=== PATIENT | male | born 1985 | race Caucasian/White ===

== ENCOUNTER 2016-04-22 20:14 | Emergency (ER) | payer SELFPAY ==
[~2016-04-22] VITALS: Ht 167.6 cm; Wt 65.9 kg
[~2016-04-22 20:14] MED LIST: ALBU8.5H5 INH; PRED20TA PO
[2016-04-22 20:38] VITALS: Ht 167.6 cm; Wt 65.9 kg
[2016-04-22] MEDS ORDERED: SOD CHLORIDE 0.9% 500 ML IV STA (22:31)
[2016-04-22] MEDS ORDERED: ONDANSETRON 4 MG INJ IV STA (22:31)
[2016-04-22] MEDS ORDERED: morphine 10 MG INJ IV ONE (23:00)
--- NOTE | 2016-04-22 23:07 | RADRPT ---
PROCEDURE: US left lower extremity venous Doppler CLINICAL INDICATION: Swelling TECHNIQUE: Multiple sonographic images of the left lower extremity deep venous system was obtained utilizing grayscale, color-flow, compressive sonography and Doppler imaging with augmentation. COMPARISON: No pertinent prior examinations were submitted for comparison. FINDINGS: There is normal compressibility and flow within the left common femoral, superficial femoral, poplit eal, and calf veins. IMPRESSION: No sonographic evidence for left deep venous thrombosis. RPTAT: HIKT .Lucas Dillon MD, MD Date Time Electronically viewed and signed by .Lucas Dillon MD, on 04/22/2016 23:07 .T/
--- NOTE | 2016-04-22 23:16 | RADRPT ---
PROCEDURE: Left knee x-ray CLINICAL INDICATION: Injury to the left knee. TECHNIQUE: AP, lateral and oblique views of the left knee were obtained. COMPARISON: None FINDINGS: Oblique fracture proximal metaphysis of the left fibula. There is mild displacement of the fracture. Remaining osseous structures are without acute fracture. Soft tissues unremarkable. IMPRESSION: Mildly displaced oblique fracture of the proximal metaphysis of the left fibula. RPTAT: UU Physician Judah Date Time Electronically viewed and signed by Physician Judah on 04/22/2016 23:15 RS/
--- NOTE | 2016-04-22 23:20 | RADRPT ---
PROCEDURE: XR Femur. CLINICAL INDICATION: Pain. TECHNIQUE: AP and lateral views of the left femur were obtained. COMPARISON: No prior studies are available for comparison. FINDINGS: Acute mildly displaced closed fracture of the proximal fibula is noted. No acute fracture of left f emur is noted. No significant soft tissue swelling is noted. IMPRESSION: 1. Acute mildly displaced closed fracture of the proximal fibula. 2. No acute fracture of the femur. RPTAT: HFN .Berenice Dixon MD, Date Time Electronically viewed and signed by .Berenice Dixon MD, on 04/22/2016 23:19 .N/
--- NOTE | 2016-04-22 23:25 | RADRPT ---
PROCEDURE: CT BRAIN WITHOUT CONTRAST CLINICAL INDICATION: 31-year-old male with trauma. TECHNIQUE: The study was performed utilizing a GE [employer] VCT 64-slice CT scanner. Direct axia l sections were obtained from the foramen magnum to the vertex without the use of intravenous contra st material. Sagittal and coronal reformations were obtained. Automated exposure control and iterat wendy reconstruction techniques were utilized for this examination. The images were viewed on a PACS workstation. CTD/vol = 39.0 mGy; Total Exam DLP = 555.0 mGy-cm. COMPARISON: None. FINDINGS: The ventricles have a normal size, shape and position. There is no evidence for mass effect or midl ine shift. There are no intracranial areas of abnormal attenuation. There is no evidence for acute intra or extra-axial blood. The bony calvarium is intact. There is mild mucosal thickening within t he partially visualized ethmoid air cells. No air-fluid levels are noted. The mastoid air cells ar e without significant soft tissue. IMPRESSION: 1. The intracranial contents are unremarkable on this noncontrast CT scan of the brain. 2. Mild mucosal thickening partially visualized ethmoid air cells. .Myron Anderson MD, MD Date Time Electronically viewed and signed by .Myron Anderson MD, on 04/22/2016 23:25 .M/
--- NOTE | 2016-04-22 23:42 | RADRPT ---
PROCEDURE: CT FACIAL BONES WITHOUT CONTRAST CLINICAL INDICATION: 31-year-old male with trauma. TECHNIQUE: The study was performed utilizing a GE [employer] VCT 64-slice CT scanner. Direct axia l sections were obtained through the facial bones without the use of intravenous contrast material. Sagittal and coronal re-formations were obtained. Automated exposure control and iterative reconstr uction techniques were utilized for this examination. The images were reviewed on a PACS workstatio n. CTD/vol = 29.5 mGy; Total Exam DLP = 544.3 mGy-cm. COMPARISON: CT brain obtained concurrently. FINDINGS: There is no evidence for a facial bone fracture. The globes are intact. There are no intra- or ext ra-conal masses. There is mild mucosal thickening within the ethmoid air cells and inferior maxillar y sinuses. No air-fluid levels are noted. The ostiomeatal units are patent bilaterally. There is le ftward nasal septal deviation. Shotty lymph nodes are seen within the upper neck. IMPRESSION: 1. No CT evidence for acute facial bone fracture. 2. Mild mucosal thickening ethmoid air cells inferior maxillary sinuses. 3. Leftward nasal septal deviation. .Myron Anderson MD, MD Date Time Electronically viewed and signed by .Myron Anderson MD, on 04/22/2016 23:42 .M/
[2016-04-22] MEDS ORDERED: CEPHALEXIN 500 MG CAP PO STA (23:47)
[2016-04-22] MEDS ORDERED: TRIMETHOPRIM/SULFAMETHOX (DS) TAB PO STA (23:47)
[2016-04-22] MEDS ORDERED: AMPICILLIN/SULB 3 GM/NS (PMX) 100 ML IVPB STA (23:58)
[2016-04-23 00:07] LABS: ADD SCAN DIFF NO
[2016-04-23 00:09] LABS: BASOPHILS % 0.5 % (0.0-2.0); EOSINOPHILS # 0.2 10^3/ul (0.0-0.5); EOSINOPHILS % 2.6 % (0.0-7.0); HEMATOCRIT 37.1 % (42.0-52.0); HEMOGLOBIN 12.4 g/dl (14.0-18.0); LYMPHOCYTES % 27.3 % (15.0-51.0); MEAN CORPUSCULAR HEMOGLOBIN 30.5 pg (29.0-33.0); MEAN CORPUSCULAR HGB CONC 33.4 g/dl (32.0-37.0); MEAN CORPUSCULAR VOLUME 91.2 fl (82.0-101.0); MEAN PLATELET VOLUME 10.6 fl (7.4-10.4); MONOCYTE # 0.6 10^3/ul (0.3-0.9); MONOCYTES % 8.5 % (0.0-11.0); NEUTROPHIL # 4.5 10^3/ul (1.6-7.5); NEUTROPHILS % 60.8 % (39.0-77.0); PLATELET COUNT 209 10^3/UL (140-415); RED BLOOD COUNT 4.07 10^6/ul (4.70-6.10); WHITE BLOOD COUNT 7.4 10^3/ul (4.8-10.8)
[2016-04-23 00:41] LABS: ALBUMIN 4.2 g/dl (3.3-4.9)
[2016-04-23 00:42] LABS: POTASSIUM 3.7 mmol/L (3.5-5.1)
[2016-04-23 00:44] LABS: ALBUMIN/GLOBULIN RATIO 1.13; BILIRUBIN,INDIRECT 0.4 mg/dl (0-1.1); BILIRUBIN,TOTAL 0.4 mg/dl (0.2-1.3); CREATININE 0.73 mg/dl (0.61-1.24); TOTAL PROTEIN 7.9 g/dl (6.1-8.1)
[2016-04-23 00:45] LABS: CALCIUM 9.2 mg/dl (8.4-10.2)
--- NOTE | 2016-04-23 01:10 | RADRPT ---
PROCEDURE: XR tibia / fibula. CLINICAL INDICATION: Trauma. TECHNIQUE: AP and lateral views of the left tibia/fibula were performed. COMPARISON: There are no similar studies submitted for comparison. FINDINGS: There is normal bone mineralization. there is an acute, oblique fracture within the proximal fibular metaphysis with minimal displacement. No osseous lesion is identified. IMPRESSION: Proximal fibular fracture. RPTAT: HIKT .Lucas Dillon MD, MD Date Time Electronically viewed and signed by .Lucas Dillon MD, MD on 04/23/2016 01:10 .T/
[2016-04-23] MEDS ORDERED: NAPR-260 PO (01:16)
[2016-04-23] MEDS ORDERED: HYDR-906 PO (01:16)
[2016-04-23] MEDS ORDERED: BACTDS PO (01:18)
[2016-04-23] MEDS ORDERED: CEPH500C PO (01:18)
--- NOTE | 2016-04-23 01:51 | ERD ---
ER Documentation Chief Complaint Date/Time DATE: 04/23/16 TIME: 01:38 Chief Complaint LT SIDE LEG AND TRUNK PAIN ROAD RASH, RIGHT BLK EYE SINCE FRIDAY +ALCOHOL HPI This is a 31-year-old male presenting to the emergency department complaining of a road rash on the left calf, knee pain, and a right black eye since Friday. Patient states that he was intoxicated on Friday and he woke up with these injuries. Patient states that he has no idea how he got them. Patient has difficulty walking due to the pain in his left lower extremity. Patient rates the pain 10/10. Patient states that the next morning he did wake up with vomiting however he was intoxicated and thinks he was due to a hangover. Patient denies any neuro deficits, he denies any headaches, lethargy, current vomiting. Patient has not taken any oral medications. Patient states that he has been applying silver Silvadene to his road rash on his left calf. ROS All systems reviewed and are negative except as per history of present illness. Medications Home Meds Active Scripts Sulfamethoxazole-Trimethoprim* (Bactrim* DS) 800-160 Mg Tab, 1 TAB PO BID, #10 TAB Prov:MEKA MAGANA PA-C 04/23/16 Cephalexin* (Cephalexin*) 500 Mg Capsule, 500 MG PO Q6 for 10 Days, CAP Prov:MEKA MAGANA PA-C 04/23/16 Naproxen* (Naprosyn*) 500 Mg Tablet, 500 MG PO BID Y for PAIN AND/OR INFLAMMATION, #30 TAB Prov:MEKA MAGANA PA-C 04/23/16 Hydrocodone/Acetaminophen (Fosters 5-325 Tablet) 1 Each Tablet, 1 TAB PO Q6H Y for PAIN, #20 TAB Prov:MEKA MAGANA PA-C 04/23/16 Prednisone* (Prednisone*) 20 Mg Tab, 40 MG PO DAILY for 4 Days, TAB Prov:RON WU PA-C 08/19/14 Albuterol Sulfate* (Albuterol Sulfate* HFA) 8.5 Gm Hfa.aer.ad, 1-2 PUFF INH Q4 Y for SHORTNESS OF BREATH, #1 EA Prov:RON WU PA-C 08/19/14 Allergies Allergies: Coded Allergies: No Known Allergy (Unverified , 06/17/14) PMhx/Soc Medical and Surgical Hx: pt denies Surgical Hx History of Surgery: No Anesthesia Reaction: No Hx Neurological Disorder: No Hx Respiratory Disorders: Yes (ASTHMA) Hx Cardiac Disorders: No Hx Psychiatric Problems: No Hx Miscellaneous Medical Probl: No Hx Alcohol Use: Yes Hx Substance Use: No Hx Tobacco Use: No Smoking Status: Never smoker Physical Exam Vitals Vital Signs Date Time Temp Pulse Resp B/P Pulse Ox O2 Delivery O2 Flow Rate FiO2 04/22/16 20:38 98.0 108 20 146/73 99 Physical Exam GENERAL: well-developed/well-nourished, in no apparent distress, non-toxic appearing HENT: NC/AT, bilateral tympanic membrane is normal with good cone of light, nares patent, oropharynx clear without exudates EYES: Conjunctiva normal, PERRLA, EOMI, no nystagmus noted NECK: Supple, no lymphadenopathy PULM: CTA bilaterally, no rales, rhonchi, or wheezing heard CV: Normal S1S2, RRR, good capillary refill GI: Soft, non-distended, normal bowel sounds, non-tender BACK: No midline tenderness, no masses, No CVAT EXT: Tenderness to palpation the left calf, knee and femur. Left calf has moderate swelling, left knee has moderate swelling with erythema. Restricted range of motion due to swelling and pain NEURO: Alert and orientated to person, place, and time. CN II-IIX intact. Hand teletype or varitype keyboard operator strength were equal and within normal limits SKIN:~7cm x 10cm abrasion with mild weeping PSYCH: Normal mood and mentation, patient denied SI Result Diagram: 04/22/16235204/22/162352 Results 24 hrs Laboratory Tests Test 04/22/16 23:53 Alanine Aminotransferase (ALT/SGPT) 33IU/L Albumin 4.2g/dl Albumin/Globulin Ratio 1.13 Alkaline Phosphatase 77IU/L Anion Gap 17 Aspartate Amino Transf (AST/SGOT) 43IU/L Basophils # 0.010^3/ul Basophils % 0.5% Blood Urea Nitrogen 11mg/dl Calcium Level 9.2mg/dl Carbon Dioxide Level 30mmol/L Chloride Level 97mmol/L Creatinine 0.73mg/dl Direct Bilirubin 0.00mg/dl Eosinophils # 0.210^3/ul Eosinophils % 2.6% Globulin 3.70g/dl Glucose Level 93mg/dl Hematocrit 37.1% Hemoglobin 12.4g/dl Indirect Bilirubin 0.4mg/dl Lipase 119U/L Lymphocytes # 2.010^3/ul Lymphocytes % 27.3% Mean Corpuscular Hemoglobin 30.5pg Mean Corpuscular Hemoglobin Concent 33.4g/dl Mean Corpuscular Volume 91.2fl Mean Platelet Volume 10.6fl Monocytes # 0.610^3/ul Monocytes % 8.5% Neutrophils # 4.510^3/ul Neutrophils % 60.8% Nucleated Red Blood Cells # 0.010^3/ul Nucleated Red Blood Cells % 0.0/100WBC Platelet Count 16918^3/UL Potassium Level 3.7mmol/L Red Blood Count 4.0710^6/ul Red Cell Distribution Width 12.0% Sodium Level 140mmol/L Total Bilirubin 0.4mg/dl Total Protein 7.9g/dl White Blood Count 7.410^3/ul Current Medications Medications (Trade) Dose Ordered Sig/Jose Route PRN Reason Start Time Stop Time Status Last Admin Dose Admin Morphine Sulfate (morphine) 6 mg ONCE ONCE IV 04/22/16 23:00 04/22/16 23:01 DC 04/22/16 23:46 Ondansetron HCl 4 mg 4 mg ONCE STAT IV 04/22/16 22:31 04/22/16 22:36 DC 04/22/16 23:46 Sodium Chloride (NS) 500 ml @ 500 mls/hr Q1H STAT IV 04/22/16 22:31 04/22/16 23:31 DC 04/22/16 23:47 Cephalexin (Keflex) 500 mg ONCE STAT PO 04/22/16 23:47 04/22/16 23:51 DC Trimethoprim/ Sulfamethoxazole 1 tab 1 tab ONCE STAT PO 04/22/16 23:47 04/22/16 23:48 DC Ampicillin Sodium/ Sulbactam Sodium (Unasyn 3gm/NS (Pmx)) 100 ml @ 100 mls/hr ONCE STAT IVPB 04/22/16 23:58 04/23/16 00:57 DC 04/23/16 00:36 Procedures/MDM This is a 31-year-old male presenting to the emergency department with a left calf abrasion, left buttock abrasion, right black eye, left lower extremity swelling since Friday 3 days ago when he was intoxicated. Patient does not remember what happened due to alcohol intoxication. I have consulted my supervising physician who has also evaluated patient and helped advise my plan below CT of the head was done and did not show any evidence of any intracranial fractures or bleeding. Facial CT did not show any evidence of any fractures or acute pathology. X-ray of the right knee, femur and tib-fib showed a mildly displaced oblique fracture of the proximal mid diaphysis of the left fibula. A venous ultrasound of the left extremity was done and did not show any evidence of DVT. On examination, patient had a normal neurological exam. I doubt intracranial bleeding, fracture, or other acute pathology He had a large abrasion from a road rash on his left calf with moderate swelling from the proximal fibular fracture. Patient was placed in a knee immobilizer and given crutches. He is neurovascular intact pre-and post treatment. Lab work was done , CBC did not show any evidence of anemia or leukocytosis. CMP was unremarkable. Patient was given Unasyn in the ED and will be given prescription for Keflex and Bactrim for outpatient. I discussed with patient to follow-up with a primary care physician to get a referral to see orthopedist in the next couple days. I discussed return to the emergency department for any worsening signs or symptoms. Patient understands and agrees with this plan Prescriptions given: Keflex and Bactrim Fosters naproxen. XR knee: mildly displaced oblique fracture of the proximal metaphysis of the left fibula. XR femur: Acute mildly displaced closed fracture of the proximal fibula. Departure Diagnosis: Primary Impression: Fracture, fibula, proximal Additional Impressions: Black eye Abrasion Condition: Stable Patient Instructions: R.I.C.E., Abrasion, Fracture, Lower Extremity, Knee Immobilizer Referrals: NO PRIMARY,CARE PHYSICIAN (PCP) COMMUNITY CLINICS YOU HAVE RECEIVED A MEDICAL SCREENING EXAM AND THE RESULTS INDICATE THAT YOU DO NOT HAVE A CONDITION THAT REQUIRES URGENT TREATMENT IN THE EMERGENCY DEPARTMENT. FURTHER EVALUATION AND TREATMENT OF YOUR CONDITION CAN WAIT UNTIL YOU ARE SEEN IN YOUR DOCTORS OFFICE WITHIN THE NEXT 1-2 DAYS. IT IS YOUR RESPONSIBILITY TO MAKE AN APPOINTMENT FOR FOLOW-UP CARE. IF YOU HAVE A PRIMARY DOCTOR --you should call your primary doctor and schedule an appointment IF YOU DO NOT HAVE A PRIMARY DOCTOR YOU CAN CALL OUR PHYSICIAN REFERRAL HOTLINE AT IF YOU CAN NOT AFFORD TO SEE A PHYSICIAN YOU CAN CHOSE FROM THE FOLLOWING [facility] [address] [facility] [address] [facility] [address] [facility] [address] [facility] [address] [facility]. [facility] [address] [facility]. [facility] YOU HAVE RECEIVED A MEDICAL SCREENING EXAM AND THE RESULTS INDICATE THAT YOU DO NOT HAVE A CONDITION THAT REQUIRES URGENT TREATMENT IN THE EMERGENCY DEPARTMENT. FURTHER EVALUATION AND TREATMENT OF YOUR CONDITION CAN WAIT UNTIL YOU ARE SEEN IN YOUR DOCTORS OFFICE WITHIN THE NEXT 1-2 DAYS. IT IS YOUR RESPONSIBILITY TO MAKE AN APPOINTMENT FOR FOLOW-UP CARE. IF YOU HAVE A PRIMARY DOCTOR --you should call your primary doctor and schedule and appointment IF YOU DO NOT HAVE A PRIMARY DOCTOR YOU CAN CALL OUR PHYSICIAN REFERRAL HOTLINE AT . IF YOU CAN NOT AFFORD TO SEE A PHYSICIAN YOU CAN CHOSE FROM THE FOLLOWING [facility]: [facility] [address] [place] [address] [facility] [address] [place] [address] [facility] [address] [place] [address] Additional Instructions: He will need to see an orthopedist within the next couple days. Follow-up with her primary care physician for an orthopedist referral. FOLLOW UP WITH YOUR PRIMARY CARE PHYSICIAN TOMORROW.Return to this facility if you are not improving as expected. SPECIALIST: YOU HAVE A MEDICAL CONDITION WHICH REQUIRES YOU TO SEE A SPECIALIST WITHIN THE NEXT 1-2 DAYS. PLEASE FOLLOW UP WITH YOUR PRIMARY PHYSICIAN FOR REFFERAL.IF YOU DO NOT HAVE A PRIMARY CARE PHYSICIAN AND/OR YOU CAN NOT AFFORD TO SEE A PHYSICIAN THE FOLLOWING RESOURCES HAVE BEEN SUPPLIED TO YOU. IT IS YOUR RESPONSIBILITY TO BE SEEN BY THE SPECIALIST Take all medicines as directed. Return to this facility if you are not improving as expected. MEKA MAGANA PA-C Apr 23, 2016 01:51
[2016-04-23 01:58] VITALS: BP 129/59; PULSE 89; RESP 18; TEMP 98.2
== END 2016-04-23 01:58 | disposition home or self-care (01) ==
LOC: FTE 20:14
DX: S82.832A Other fracture of upper and lower end of left fibula, initial encounter for closed fracture (principal); S00.11XA Contusion of right eyelid and periocular area, initial encounter; S80.812A Abrasion, left lower leg, initial encounter; S30.810A Abrasion of lower back and pelvis, initial encounter; J45.909 Unspecified asthma, uncomplicated; X58.XXXA Exposure to other specified factors, initial encounter; Y92.9 Unspecified place or not applicable
CPT/HCPCS: 29505; 70450; 70486; 73550; 73562; 73590; 80053; 83690; 85025; 93971; 96374; 96375; 99285; J0295; J2270; J2405; J7040

== ENCOUNTER 2018-03-19 19:48 | Emergency (ER) | payer OTHER ==
[~2018-03-19] VITALS: Ht 170.2 cm; Wt 80.0 kg
[~2018-03-19 19:48] MED LIST changes: +BACTDS PO; +CEPH500C PO; +HYDR-4011 PO; +NAPR-985 PO
[2018-03-19 19:50] VITALS: BP 141/76; PULSE 80; RESP 16; Ht 170.2 cm; Wt 80.0 kg
[2018-03-19] MEDS ORDERED: PRED20TA PO (21:24)
[2018-03-19] MEDS ORDERED: ALBU8.5H8 INH (21:24)
--- NOTE | 2018-03-19 21:26 | ERD ---
ER Documentation Chief Complaint Chief Complaint pt reports he ran out of asthalin 100mcg inhaler today HPI 33-year-old male with history of asthma is here complaining of running out of his inhaler and he would like a prescription for a new inhaler. Right now he states he feels okay but sometimes in the morning he gets wheezy. No fever or cough. ROS All systems reviewed and are negative except as per history of present illness. Medications Home Meds Active Scripts Prednisone* (Prednisone*) 20 Mg Tab, 60 MG PO DAILY for 4 Days, TAB Prov:MARY THIBODEAUX PA-C 03/19/18 Albuterol Sulfate* (Proair HFA*) 8.5 Gm Hfa.aer.ad, 2 PUFF INH Q4, #1 INHALER Prov:MARY THIBODEAUX PA-C 03/19/18 Sulfamethoxazole-Trimethoprim* (Bactrim* DS) 800-160 Mg Tab, 1 TAB PO BID, #10 TAB Prov:MEKA MAGANA PA-C 04/23/16 Cephalexin* (Cephalexin*) 500 Mg Capsule, 500 MG PO Q6 for 10 Days, CAP Prov:MEKA MAGANA PA-C 04/23/16 Naproxen* (Naprosyn*) 500 Mg Tablet, 500 MG PO BID PRN for PAIN AND/OR INFLAMMATION, #30 TAB Prov:MEKA MAGANA PA-C 04/23/16 Hydrocodone/Acetaminophen ([place] 5-325 Tablet) 1 Each Tablet, 1 TAB PO Q6H PRN for PAIN, #20 TAB Prov:MEKA MAGANA PA-C 04/23/16 Prednisone* (Prednisone*) 20 Mg Tab, 40 MG PO DAILY for 4 Days, TAB Prov:RON WU PA-C 08/19/14 Albuterol Sulfate* (Albuterol Sulfate* HFA) 8.5 Gm Hfa.aer.ad, 1-2 PUFF INH Q4 PRN for SHORTNESS OF BREATH, #1 EA Prov:RON WU PA-C 08/19/14 Allergies Allergies: Coded Allergies: No Known Allergy (Unverified , 06/17/14) PMhx/Soc Medical and Surgical Hx: pt denies Surgical Hx History of Surgery: No Anesthesia Reaction: No Hx Neurological Disorder: No Hx Respiratory Disorders: Yes (ASTHMA) Hx Cardiac Disorders: No Hx Psychiatric Problems: No Hx Miscellaneous Medical Probl: No Hx Alcohol Use: Yes Hx Substance Use: No Hx Tobacco Use: No Smoking Status: Never smoker FmHx Family History: No diabetes Physical Exam Vitals Vital Signs Date Temp Pulse Resp B/P (MAP) Pulse Ox O2 O2 Flow FiO2 Time Delivery Rate 03/19/18 98.3 80 16 141/76 96 19:50 (97) Physical Exam Const: No acute distress Head: Atraumatic Eyes: Normal Conjunctiva ENT: Normal External Ears, Nose and Mouth. Neck: Full range of motion. No meningismus. Resp: Clear to auscultation bilaterally Cardio: Regular rate and rhythm, no murmurs Procedures/MDM Patient discharged with albuterol inhaler and short course of prednisone. Patient counseled regarding my diagnostic impression and care plan. Prior to discharge all questions answered. Pt agrees with treatment plan and understands strict return precautions. Pt is instructed to follow up with primary care provider within 24-48 hours. Precautionary instructions provided including instructions to return to the ER if not improving or for any worsening or changing symptoms or concerns. Departure Diagnosis: Primary Impression: Asthma Additional Impression: Encounter for medication refill Condition: Stable Patient Instructions: Asthma Additional Instructions: Llame al doctor MAILE y pelon oumar RADHA PARA DENTRO DE 1-2 ROSALES.Dgale a la secretaria que nosotros le instruimos hacer esta radha.Avise o llame si odonnell condicin se empeora antes de la radha. Regresa aqui si peor o no mejor. MARY THIBODEAUX PA-C Mar 19, 2018 21:26
== END 2018-03-19 21:46 | disposition home or self-care (01) ==
LOC: FTE 19:48
DX: J45.909 Unspecified asthma, uncomplicated (principal)
CPT/HCPCS: 99283